=== PATIENT | female | born 1975 | race Caucasian/White ===

== ENCOUNTER 2016-12-24 18:19 | Inpatient (IN) | payer BC ==
--- NOTE | ~2016-12-24 | CR72 ---
[facility] A Service of [facility] RADIOLOGY TEXT RESULTS PATIENT: ASHA SANCHEZ LOCATION: [facility] 5610-09 : 73 UNIT #: [id number] AGE: [address]: Hugh Ernandez MD SEX: F ORDER DR: [id number] [place], [place] [address] [id number] I MR#: [id number] Acc #: [id number] NAME: ASHA SANCHEZ : 1975 SEX: F STUDY DATE/TIME: 12/24/2016 18:16 [facility] 00430 STUDY DESCRIPTION: CR Chest Single View Portable Attending Physician: Hugh Ernandez M.D. Ordering Physician: Allegra Can M.D. Primary Care Physician: Mae Colon M.D. MEDICAL IMAGING REPORT This report is preliminary unless electronic signature is present EXAM Frontal chest 12/24/2016 INDICATIONS 41-year-old female with chest pain, headache and weakness today. TECHNIQUE Frontal chest was performed. COMPARISON STUDIES We have no comparisons. FINDINGS Cardiac silhouette within normal limits. The vascularity is unremarkable. The lungs are clear. No pneumothorax. No effusion. IMPRESSION 1. Negative frontal chest for active disease. We have no comparisons. Dictated by... Nigel Solano M.D. THIS IS AN ELECTRONICALLY VERIFIED REPORT Nigel Solano M.D. at 12/25/2016 5:10 PM SNEHAL/spencer TD: 12/24/2016 22:55 JOB #: [id number] [facility] A Service of [facility] RADIOLOGY TEXT RESULTS PATIENT: ASHA SANCHEZ LOCATION: [facility] : 71 UNIT #: [id number] AGE: [address]: Hugh Ernanedz MD SEX: F ORDER DR: MEDICAL IMAGING REPORT Page 1 of 1 COPY
--- NOTE | ~2016-12-24 | HP ---
Unit #: [id number] #: [id number] Patient: ASHA SANCHEZ [id number] [address] [id number] I MR#: [id number] NAME: ASHA SANCHEZ ROOM: 562 Age: 41 Sex: F Admission Date: 12/24/2016 : 1975 Attending Physician: Hugh Ernandez M.D. Primary Care Physician: Mae Colon M.D. HISTORY AND PHYSICAL HISTORY OF PRESENT ILLNESS This is a 41-year-old white female who was admitted with upper anterior chest pain with radiation to the back, neck and jaw, associated with shortness of breath and weakness. 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 Her symptoms were intermittent, lasting for more than 36 hours before she went to her primary care physician. She was subsequently sent to the hospital for evaluation. In the emergency room electrocardiogram showed no acute ischemic changes. There was elevation of troponin at 15.60, which ruled her in for an acute non-ST elevation myocardial infarction. She was treated in the emergency room with aspirin and nitrates. She was started on anticoagulation with heparin drip. From a cardiac standpoint the patient has risk factors for ischemic heart disease that include diabetes mellitus type 1, nicotine abuse and family history of heart disease. She has had no prior cardiac history or workup. Until two days ago the patient was doing well without any symptoms of angina. She denies any exertional dyspnea, palpitations or dizziness. PAST MEDICAL HISTORY 1. Type 1 diabetes mellitus type 2 since age 3. 2. Nicotine abuse. PAST SURGICAL HISTORY 1. Appendectomy. 2. Arm plate insertion that was later removed. 3. Hysterectomy. SOCIAL HISTORY The patient is . 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 She states she is reasonably active, where she lifts boxes at work. She is very active with her children. She smokes a pack of cigarettes daily for at least 20 years. She denies illicit drug use. FAMILY HISTORY Father had myocardial infarction in his 70s. ALLERGIES No known drug allergies. HOME MEDICATIONS 1. Levemir 28 units subcutaneous at nighttime. 2. Wellbutrin 150 mg daily. REVIEW OF SYSTEMS Unit #: [id number] #: [id number] Patient: ASHA SANCHEZ CONSTITUTIONAL: Negative for fever or chills. Reports no weight gain or weight loss. HEENT: No headache. No visual changes, difficulty performing. Negative for dizziness. CARDIOVASCULAR: Has chest pain as described in history of present illness. Denies palpitations. No paroxysmal nocturnal dyspnea or orthopnea. No syncope or near syncope. RESPIRATORY: Positive for dyspnea that accompanies chest pain. No cough or hemoptysis. GASTROINTESTINAL: No abdominal pain, nausea or vomiting. EXTREMITIES: Negative for lower extremity edema. PHYSICAL EXAMINATION GENERAL: This is a very pleasant 41-year-old, middle-aged white female who appears younger than her stated age. VITALS: Blood pressure 110/60, heart rate 93, temperature 98.1, BMI 23. NECK: Trachea is midline. No thyromegaly. No lymphadenopathy. No jugular venous distension. CHEST: Clear to auscultation. No rales, rhonchi or wheezes. HEART: S1 and S2. Heart sounds are normal. No murmurs, rubs or clicks. Regular rate and rhythm. ABDOMEN: Soft and nontender with bowel sounds present. EXTREMITIES: Without leg edema. NEUROLOGIC: She is awake, alert and oriented. There is no focal weakness. 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 DIAGNOSTIC STUDIES IMAGING: Chest x-ray shows no active disease. LABORATORY: Glucose 253, BUN 9, creatinine 0.6, sodium 135, potassium 4.2. Cholesterol 195, triglycerides 218, LDL 99, HDL 52, D-dimer 392. Troponin 15.6 to 13.3 to 15.60. White blood cell count 8.7, hemoglobin 15.0, hematocrit 44.9, platelets 176. CARDIOVASCULAR: Electrocardiogram normal sinus rhythm with a rate of 88 beats per minute with short MT interval. Left anterior vesicular block and poor R wave progression. Questionable septal infarct. ASSESSMENT 1. Acute non-ST elevation myocardial infarction. 2. Insulin dependent diabetes mellitus type 1. 3. Nicotine abuse. PLAN 1. Because of acute myocardial infarction and multiple risk factors will recommend cardiac catheterization to evaluate coronary anatomy. This has been discussed with the patient, including the risks and benefits of bleeding, myocardial infarction, CVA, renovascular complications and . The patient is agreeable. 2. Will load with Brilinta and start on daily regimen. 3. Continue aspirin and heparin drip. 4. Will add MARBIN inhibitor and beta wander. 5. Lipid profile was obtained, which showed elevated triglycerides. Will place on high-intensity, high-dose statin for AMI. 6. Will ask HIPS to follow the patient for diabetes management. Unit #: [id number] #: [id number] Patient: ASHA SANCHEZ Dictated by Tej Oleary A.P.R.N. for Gianni Peña M.D. AERosi/gz TD: 12/25/2016 15:23 JOB #: [id number] CC: [facility] Mae Colon M.D. HISTORY AND PHYSICAL Page 1 of 1 X Tej Oleary APRN X HISTORY AND PHYSICAL
--- NOTE | ~2016-12-24 | EKG ---
PATIENT: ASHA SANCHEZ UNIT #: [id number] Ventricular Rate: 88 BPM Atrial Rate: 88 BPM P-R Interval: 104 ms QRS Duration: 80 ms Q-T Interval: 374 ms QTC Calculation(Bezet): 452 ms P Susan: -19 degrees Calculated R Susan: -46 degrees Calculated T Susan: 49 degrees Diagnosis Line: Sinus rhythm with short MT Diagnosis Line: Left anterior fascicular block Diagnosis Line: Abnormal ECG Diagnosis Line: No previous ECGs available Diagnosis Line: Confirmed by SORAIDA LINARES MD ([id number]) on 12/25/2016 Diagnosis Line: 7:16:34 PM INTERPRETING MD: VIJAY SPAIN
--- NOTE | ~2016-12-24 | EKG ---
PATIENT: ASHA SANCHEZ UNIT #: [id number] Ventricular Rate: 100 BPM Atrial Rate: 100 BPM P-R Interval: 112 ms QRS Duration: 80 ms Q-T Interval: 366 ms QTC Calculation(Bezet): 472 ms P [place]: 59 degrees Calculated R [place]: -37 degrees Calculated T [place]: 92 degrees Diagnosis Line: Normal sinus rhythm Diagnosis Line: Left axis deviation Diagnosis Line: Low voltage QRS Diagnosis Line: Nonspecific T wave abnormality Diagnosis Line: Prolonged QT Diagnosis Line: Abnormal ECG Diagnosis Line: When compared with ECG of 25-DEC-2016 11:33, Diagnosis Line: No significant change was found Diagnosis Line: Confirmed by ALEX MCCLOUD MD ([id number]) on Diagnosis Line: 12/26/2016 9:35:37 PM INTERPRETING MD: PAUL
--- NOTE | ~2016-12-24 | EKG ---
PATIENT: ASHA SANCHEZ UNIT #: [id number] Ventricular Rate: 94 BPM Atrial Rate: 94 BPM P-R Interval: 100 ms QRS Duration: 78 ms Q-T Interval: 380 ms QTC Calculation(Bezet): 475 ms P [place]: 24 degrees Calculated R [place]: -69 degrees Calculated T [place]: 71 degrees Diagnosis Line: Sinus rhythm with short MO Diagnosis Line: Left anterior fascicular block Diagnosis Line: Cannot rule out Inferior infarct , age Diagnosis Line: undetermined Diagnosis Line: Abnormal ECG Diagnosis Line: When compared with ECG of 24-DEC-2016 16:14, Diagnosis Line: (unconfirmed) Diagnosis Line: No significant change was found Diagnosis Line: Confirmed by SORAIDA LINARES MD ([id number]) on 12/25/2016 Diagnosis Line: 10:49:04 PM INTERPRETING MD: VIJAY SPAIN
--- NOTE | ~2016-12-24 | DS ---
Unit #: [id number] #: [id number] Patient: ASHA SANCHEZ [id number] [address] [place], [place] [address] [id number] I MR#: [id number] NAME: ASHA SANCHEZ ROOM: 562 Age: 41 Sex: F Admission Date: 12/24/2016 : 1975 Discharge Date: 12/27/2016 Attending Physician: Hugh Ernandez M.D. Primary Care Physician: Mea Colon M.D. DISCHARGE SUMMARY DISCHARGE DIAGNOSES 1. Acute anterolateral wall non-ST elevation myocardial infarction with peak troponin of 37.69. 2. Status post cardiac catheterization 12/25/2016 which revealed the following results: A. Left main normal. B. Left anterior descending artery with 80 to 90% stenosis distal to the first diagonal branch. Distal half of the left anterior descending is normal to small caliber and not an ideal target. First diagonal branch small caliber, diffuse disease. C. Circumflex artery normal with first marginal branch occluded immediately distal to its origin. BARRERA-0 flow. D. Right coronary artery: A large caliber, dominant vessel with a long segment of stenosis with 80% stenosis mid vessel. Posterior descending artery and posterior left ventricle branch is normal. E. Ejection fraction of 55%. Moderate posterior wall hypokinesis. 3. Status post angioplasty with drug-eluting stent to the first obtuse marginal branch and mid left anterior descending. Right coronary artery not dilated. 4. Hypotension, resolved. 5. Insulin-dependent diabetes mellitus type one. 6. Hypoglycemia, resolved. 7. Nicotine abuse. DISCHARGE MEDICATIONS 1. Wellbutrin 150 mg daily. 2. Lipitor 80 mg q.h.s. 3. Levemir 28 units subcu q.h.s. 4. Aspirin 81 mg p.o. daily. 5. Brilinta 90 mg daily. 6. Nitroglycerin 0.4 mg sublingual q.5 minutes x3 p.r.n. chest pain. 7. Carvedilol 3.125 mg b.i.d. HOSPITAL COURSE This is a 41-year-old, young, white female who was admitted with upper anterior chest pain that radiated to her back, neck and jaw. She had associated shortness of breath and weakness. On arrival to the emergency room, she ruled in for an acute myocardial infarction where her troponin was 15.60. It peaked at 37.69. She was treated initially with aspirin and placed on a heparin drip. She was given high intensity, high dose statin. Lipid profile was obtained which found her to have good control of her lipid levels with the exception of an elevated triglyceride level of 218. She was loaded with Brilinta and started on a daily regimen. The patient was started on an MARBIN inhibitor, lisinopril 5 mg daily. Later, Unit #: [id number] #: [id number] Patient: ASHA SANCHEZ she became hypotensive. Her blood pressure dropped to 85/44 mmHg. Lisinopril dose was decreased and eventually discontinued. Cardiac catheterization was recommended for which the patient was agreeable. Cath findings including 100% stenosis to the first obtuse marginal branch which was the infarct artery. The mid LAD had 80 to 90% stenosis. The right coronary artery had a long segment of 80% stenosis that was not dilated. After discussion with the patient and family, they agreed on staged angioplasty instead of coronary artery bypass surgery. There was successful deployment of a 2.5/16 mm Synergy drug-eluting stent into the 100% stenosis of the first obtuse marginal branch. The stenosis was reduced to zero percent after postdilation to 2.6 mm. Distal first obtuse marginal branch had 90% stenosis that used plain old balloon angioplasty. The mid LAD 90% stenosis was reduced to zero percent using a 2.5/16 Synergy drug-eluting stent. She was placed on Integrilin for 12 hours postprocedure. Her heart remained elevated. Lisinopril was discontinued and the patient was started on carvedilol for rate control. For diabetes management, [facility] saw the patient and adjusted her insulin because of hypoglycemia. Her hypoglycemia improved. Today, the patient is doing well. She has ambulated in the hallway without any symptoms of angina. Orthostatic blood pressures were obtained which were normal. MB index 10.7 with no acute ischemic changes on her EKG. She is stable for discharge today. ASSESSMENT VITAL SIGNS: Blood pressure 93/47. Heart rate 91. Temperature 98.7. CHEST: Clear to auscultation. HEART: S1, S2. Heart sounds are normal. No murmurs, rubs or clicks. Regular rate and rhythm. ABDOMEN: Soft, nontender but bowel sounds are present. EXTREMITIES: Without leg edema. Right radial without hematoma or bruising. DIAGNOSTIC STUDIES LABORATORY: Sodium 134, potassium 4.4, BUN 13, creatinine 0.5, glucose 215, magnesium 1.9. MB index 10.7. Cholesterol 195, triglycerides 218, LDL 99, HDL 52. CONSULTATION HIPS for diabetes management. DISCHARGE INSTRUCTIONS 1. The patient will be discharged home today. 2. Follow up with Dr. Peña on January at 2:45 p.m. 3. Follow up with primary care physician in two to three weeks. 4. The patient may return to work on January 13, 2017 with no restrictions. 5. MARBIN inhibitor has been discontinued because of hypotension. The patient was started on carvedilol. We will check blood pressure in the office and start MARBIN inhibitor if blood pressure allows. 6. Continue on dual antiplatelet therapy with aspirin and Brilinta for at least one year. She has zero copay for Brilinta. 7. The patient has been given information about cardiac rehab and is unsure whether it will fit into her work schedule. Cardiac Rehab is to follow up with the patient after discharge. Unit #: [id number] #: [id number] Patient: ASHA SANCHEZ Dictated by... Elaina PradoRPreston. for Jeff Cox/carol TD: 12/29/2016 14:26 JOB #: [id number] DISCHARGE SUMMARY Page 1 of 1 X Tej Oleary APRN X DISCHARGE SUMMARY
--- NOTE | ~2016-12-24 | CO ---
Unit #: [id number] #: [id number] Patient: ASHA SANCHEZ [id number] [address] [address] [id number] I MR#: [id number] NAME: ASHA SANCHEZ ROOM: 562 Age: 41 Sex: F Admission Date: 12/24/2016 : 1975 Attending Physician: Hugh Ernandez M.D. Primary Care Physician: Mae Colon M.D. CONSULTATION REPORT REASON FOR ADMISSION Non-ST elevation myocardial infarction. HISTORY OF PRESENT ILLNESS The patient is a very pleasant 41-year-old female with underlying history of insulin dependent diabetes since age 3 and tobacco abuse, who was admitted secondary to chest pain, discomfort, weakness, as well as difficulty with ambulation secondary to profound heaviness in the chest. She presented to the emergency room and it was noted that she did have elevated troponins. Troponin did peat at 15.60. This morning Dr. Peña saw and evaluated the patient. She has already undergone cardiac catheterization with percutaneous intervention and/or stent placement. She was noted to have 100% lesion left circumflex as well as 75% lesion in the RCA. She underwent staged PCI. We were asked to evaluate the patient secondary to her prior history of insulin dependent diabetes. PAST MEDICAL HISTORY 1. Nicotine abuse. 2. Insulin dependent diabetes since age 3. PAST SURGICAL HISTORY 1. Appendectomy. 2. Plate in arm, removed. 3. Hysterectomy. SOCIAL HISTORY Positive tobacco use. No illicit drug use. No alcohol use. 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 FAMILY HISTORY Reviewed. Mother had myocardial infarction. Diabetes does run in her family. ALLERGIES No known drug allergies. HOME MEDICATIONS 1. Levemir 28 units subcutaneous at nighttime. 2. Humalog sliding scale anywhere from 8-12 units throughout the day. 3. Wellbutrin 150 mg p.o. daily. REVIEW OF SYSTEMS Unit #: [id number] #: [id number] Patient: ASHA SANCHEZ Please see history of present illness. Twelve points otherwise negative except for those positive noted in history of present illness. PHYSICAL EXAMINATION GENERAL: The patient is a very pleasant 41-year-old female lying comfortably in no acute distress. VITALS: Temperature on admission 98.9, pulse 91, respiratory rate 16, blood pressure 124/62. HEENT: Head atraumatic, normocephalic. Ears, tympanic membranes no drainage or injection. NECK: Supple. LUNGS: Clear. HEART: S1 and S2 without murmur. GI/ABDOMEN: Nontender and nondistended. EXTREMITIES: No lower extremity edema or calf tenderness. NEUROLOGIC: The patient is alert and oriented times three. No evidence of any focal nerve deficits. EMERGENCY ROOM COURSE The patient received aspirin, normal saline bolus, sublingual nitroglycerin. DIAGNOSTIC STUDIES LABORATORY: Includes LDL 99, triglycerides 218, HDL 52, hemoglobin 15. Cardiac enzymes as mentioned above, positive yielding a peak troponin of 15.60. Influenza screen negative. INITIAL ADMISSION DIAGNOSIS 1. Non-ST elevation myocardial infarction status post cardiac catheterization with staged PCI times three. Please see catheterization report. 2. Insulin dependent diabetes, under excellent control. 3. Tobacco abuse. 4. Remote history of questionable TIA in the past. PLAN The patient will be reverted back to her home medications in regard to diabetes management, including Levemir 28 units subcutaneous at nighttime with low-dose NovoLog sliding scale insulin. Normally at home with breakfast she takes approximately 8 units of Humalog. 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 For dinner she takes anywhere from 8 to 12 units. Her last hemoglobin A1c performed at Dr. Joseph's office, her laboratory animal care veterinarian, was 5.8%, indicating excellent diabetic control. At the time of discharge the patient can be reverted back to her home dosage to which she was prior to being admitted here. For now I will resume her Levemir and continue her on low-dose NovoLog, with further hospital course to follow. Thank you, Dr. Peña, for this consultation. From our standpoint and from a diabetic management, the patient can be discharged home once she is clear and stable from a cardiac standpoint and from your point of view. Dictated by... Amos Beverly M.D. Unit #: [id number] #: [id number] Patient: ASHA SANCHEZ ISN/gz TD: 12/25/2016 11:52 JOB #: [id number] CONSULTATION REPORT Page 1 of 1 X Amos Beverly MD CONSULTATION REPORT
--- NOTE | ~2016-12-24 | EKG ---
PATIENT: ASHA SANCHEZ UNIT #: [id number] Ventricular Rate: 90 BPM Atrial Rate: 90 BPM P-R Interval: 120 ms QRS Duration: 80 ms Q-T Interval: 388 ms QTC Calculation(Bezet): 474 ms P [place]: 50 degrees Calculated R [place]: -94 degrees Calculated T [place]: 76 degrees Diagnosis Line: Normal sinus rhythm Diagnosis Line: Right superior axis deviation Diagnosis Line: Anterolateral infarct Diagnosis Line: Prolonged QT Diagnosis Line: Abnormal ECG Diagnosis Line: When compared with ECG of 25-DEC-2016 07:37, Diagnosis Line: (unconfirmed) Diagnosis Line: No significant change was found Diagnosis Line: Confirmed by SORAIDA LINARES MD ([id number]) on 12/26/2016 Diagnosis Line: 4:51:09 AM INTERPRETING MD: VIJAY SPAIN
[2016-12-24 17:07] LABS: BASOPHIL% 0.1 % (0-2.5); EOSINOPHIL% 0.2 % (0.0-7.0); HEMATOCRIT 46.6 % (35.0-45.0); HEMOGLOBIN 15.2 gm/dL (12.0-16.0); LYMPHOCYTE# 1.3 X10e3 (1.0-3.5); LYMPHOCYTE% 11.2 % (17.0-45.0); MEAN CELL VOLUME 91.5 FL (83-96); MEAN CORPUSCULAR HEMOGLOBIN 29.9 PG (28-34); MEAN CORPUSCULAR HGB CONC 32.7 g/dL (30-36); MEAN PLATELET VOLUME 8.5 FL (6.5-11.5); MONOCYTE# 0.6 X10e3 (0-1.0); MONOCYTE% 5.8 % (3.0-12.0); NEUTROPHIL# 9.3 X10e3 (1.5-7.1); NEUTROPHIL% 82.7 % (40-75); PLATELET COUNT 198 X10e3 (140-420); RED BLOOD COUNT 5.09 X10e (3.90-5.30); RED CELL DISTRIBUTION WIDTH 13.4 % (11.0-15.5); WHITE BLOOD COUNT 11.2 X10e3 (4.0-10.5)
[2016-12-24 17:13] LABS: DIFF IND NO
[2016-12-24 17:29] LABS: ALBUMIN SERUM 4.2 g/dL (3.5-5.0); BILIRUBIN, DIRECT 0.1 mg/dL (0.0-0.2); BILIRUBIN,INDIRECT 0.3 mg/dL (0.0-0.9); BILIRUBIN,TOTAL 0.4 mg/dL (0.2-2.0); BUN/CREATININE RATIO 12.5; CALCIUM SERUM 9.1 mg/dL (8.4-10.2); CREATININE SERUM 0.8 mg/dL (0.6-1.4); GLOM FILT RATE Estimated 90.4 mL/min (>60); POTASSIUM 4.2 mmol/L (3.5-5.1); PROTEIN TOTAL SERUM 8.1 g/dL (6.0-8.3)
[2016-12-24 18:34] LABS: POC - CKMB 64.2 ng/mL (0.0-7.9); POC - TROPONIN 15.6 ng/mL (<=0.05)
[2016-12-24 18:47] LABS: INFLUENZA A NEG (NEG); INFLUENZA B NEG (NEG)
[2016-12-24 19:40] LABS: POC - CKMB 64.9 ng/mL (0.0-7.9); POC - TROPONIN 13.3 ng/mL (<=0.05)
[2016-12-24 20:53] LABS: PARTIAL THROMBOPLASTIN TIME 25.2 SECONDS (23.5-31.3)
[2016-12-24] MEDS ORDERED: LEVEMIR100 UNITS/ SUBQ (22:52)
[2016-12-24] MEDS ORDERED: WELLBUTRIN XL150 M2 PO (22:53)
[2016-12-25] MEDS ORDERED: WELLBUTRIN100 MG (01:23)
[2016-12-25 03:08] LABS: BASOPHIL% 0.1 % (0-2.5); EOSINOPHIL% 0.4 % (0.0-7.0); HEMATOCRIT 42.5 % (35.0-45.0); HEMOGLOBIN 14.2 gm/dL (12.0-16.0); LYMPHOCYTE# 1.5 X10e3 (1.0-3.5); LYMPHOCYTE% 14.7 % (17.0-45.0); MEAN CORPUSCULAR HEMOGLOBIN 30.5 PG (28-34); MEAN CORPUSCULAR HGB CONC 33.5 g/dL (30-36); MEAN PLATELET VOLUME 8.3 FL (6.5-11.5); MONOCYTE# 0.8 X10e3 (0-1.0); MONOCYTE% 7.8 % (3.0-12.0); NEUTROPHIL# 7.9 X10e3 (1.5-7.1); PLATELET COUNT 150 X10e3 (140-420); RED BLOOD COUNT 4.67 X10e (3.90-5.30); RED CELL DISTRIBUTION WIDTH 13.2 % (11.0-15.5); WHITE BLOOD COUNT 10.3 X10e3 (4.0-10.5)
[2016-12-25 03:09] LABS: DIFF IND NO
[2016-12-25 03:42] LABS: BUN/CREATININE RATIO 13.33; CREATININE SERUM 0.6 mg/dL (0.6-1.4); GLOM FILT RATE Estimated 111.6 mL/min (>60); POTASSIUM 3.7 mmol/L (3.5-5.1)
[2016-12-25 04:13] LABS: %MB 12.9 % (0.0-4.0); MB 125.4 ng/ml
[2016-12-25 09:19] LABS: HEMATOCRIT 44.9 % (35.0-45.0); MEAN CELL VOLUME 90.2 FL (83-96); MEAN CORPUSCULAR HEMOGLOBIN 30.1 PG (28-34); MEAN CORPUSCULAR HGB CONC 33.4 g/dL (30-36); MEAN PLATELET VOLUME 8.7 FL (6.5-11.5); RED BLOOD COUNT 4.98 X10e (3.90-5.30); RED CELL DISTRIBUTION WIDTH 13.2 % (11.0-15.5); WHITE BLOOD COUNT 8.7 X10e3 (4.0-10.5)
[2016-12-25 09:28] LABS: PARTIAL THROMBOPLASTIN TIME 39.2 SECONDS (23.5-31.3)
[2016-12-25 09:45] LABS: CHOLESTEROL 195 mg/dL (0-200); HDL CHOLESTEROL 52 mg/dL (35-95); LDL CHOLESTEROL 99 mg/dL (-130); LDL/HDL RATIO 2 RATIO (0-4); TRIGLYCERIDES 218 mg/dL (10-160)
[2016-12-25 09:56] LABS: CALCIUM SERUM 8.4 mg/dL (8.4-10.2); CREATININE SERUM 0.6 mg/dL (0.6-1.4); GLOM FILT RATE Estimated 111.6 mL/min (>60); POTASSIUM 4.2 mmol/L (3.5-5.1)
[2016-12-25 15:43] LABS: PROTHROMBIN TIME (PATIENT) 10.2 SECONDS (9.6-11.5)
[2016-12-25 16:09] LABS: AMPHETAMINE NEG (NEG); BARBITURATES NEG (NEG); BENZODIAZEPINES POS (NEG); COCAINE NEG (NEG); MARIJUANA NEG (NEG); OPIATES NEG (NEG); TRICYCLIC ANTIDEPRESSANTS NEG (NEG); U METHADONE NEG (NEG)
[2016-12-25 16:18] LABS: %MB 14.2 % (0.0-4.0); MB 133.2 ng/ml
[2016-12-25 19:44] LABS: ANGIO %MB 13.2 % (0.0-4.0); ANGIO MB 90.4 ng/ml
[2016-12-26 03:17] LABS: HEMATOCRIT 35.6 % (35.0-45.0); MEAN CORPUSCULAR HEMOGLOBIN 30.2 PG (28-34); MEAN CORPUSCULAR HGB CONC 32.9 g/dL (30-36); MEAN PLATELET VOLUME 8.5 FL (6.5-11.5); RED BLOOD COUNT 3.87 X10e (3.90-5.30); RED CELL DISTRIBUTION WIDTH 13.1 % (11.0-15.5); WHITE BLOOD COUNT 7.6 X10e3 (4.0-10.5)
[2016-12-26 03:18] LABS: HEMOGLOBIN 11.7 gm/dL (12.0-16.0)
[2016-12-26 04:07] LABS: ANGIO %MB 10.7 % (0.0-4.0); ANGIO MB 44.4 ng/ml
[2016-12-26 04:11] LABS: CALCIUM SERUM 8.1 mg/dL (8.4-10.2); CREATININE SERUM 0.5 mg/dL (0.6-1.4); GLOM FILT RATE Estimated 118.6 mL/min (>60); POTASSIUM 4.2 mmol/L (3.5-5.1)
[2016-12-27 09:46] LABS: CALCIUM SERUM 8.6 mg/dL (8.4-10.2); CREATININE SERUM 0.5 mg/dL (0.6-1.4); GLOM FILT RATE Estimated 118.6 mL/min (>60); MAGNESIUM 1.9 mg/dL (1.6-3.0); POTASSIUM 4.4 mmol/L (3.5-5.1)
[2016-12-27] MEDS ORDERED: ASPIRIN EC81 M1 PO (14:19)
[2016-12-27] MEDS ORDERED: COREG PO (14:20)
[2016-12-27] MEDS ORDERED: NITROGLYGERIN0.4 MG SL (14:20)
[2016-12-27] MEDS ORDERED: BRILINTA90 MG PO (14:21)
== END 2016-12-27 16:41 | disposition home or self-care (01) | DRG 247 ==
LOC: CED 18:19 → CEDOF 19:00 → C5B 23:34
PROVIDERS: Emergency Medicine; Family Medicine; Internal Medicine Advanced Heart Failure and Transplant Cardiology; Internal Medicine Cardiovascular Disease; Nurse Practitioner
PROC: 027135Z Dilation of Coronary Artery, Two Arteries with Two Drug-eluting Intraluminal Devices, Percutaneous Approach (ICD-10-PCS; principal; 2016-12-25)
PROC: 02703ZZ Dilation of Coronary Artery, One Artery, Percutaneous Approach (ICD-10-PCS; 2016-12-25)
PROC: B2151ZZ Fluoroscopy of Left Heart using Low Osmolar Contrast (ICD-10-PCS; 2016-12-25)
PROC: B2111ZZ Fluoroscopy of Multiple Coronary Arteries using Low Osmolar Contrast (ICD-10-PCS; 2016-12-25)
DX: I21.4 Non-ST elevation (NSTEMI) myocardial infarction (principal); E10.649 Type 1 diabetes mellitus with hypoglycemia without coma; I95.9 Hypotension, unspecified; I25.10 Atherosclerotic heart disease of native coronary artery without angina pectoris; F17.210 Nicotine dependence, cigarettes, uncomplicated; Z79.4 Long term (current) use of insulin; Z79.82 Long term (current) use of aspirin; Z79.899 Other long term (current) drug therapy; Z82.49 Family history of ischemic heart disease and other diseases of the circulatory system
CPT/HCPCS: 36415; 71010; 80048; 80061; 80076; 80307; 82550; 82553; 82947; 83735; 84484; 85025; 85027; 85049; 85347; 85379; 85610; 85730; 87804; 93005; 96361; 96374; 99285; C1769; C1874; C1887; C1894; J1327; J1644; J1815; J2250; J2370; J3010

== ENCOUNTER 2017-03-09 04:27 | Emergency (ER) | payer BC ==
--- NOTE | ~2017-03-09 | CR72 ---
[facility] A Service of [facility] RADIOLOGY TEXT RESULTS PATIENT: ASHA SANCHEZ LOCATION: [facility] : [birth year] UNIT #: [id number] AGE: [address]: Jae Sandy MD SEX: F ORDER DR: [id number] [facility] [address] [place], [place] [address] [id number] E MR#: [id number] Acc #: [id number] NAME: ASHA SANCHEZ : 1975 SEX: F STUDY DATE/TIME: 03/09/2017 5:01 UNIT: [facility] ROOM: STUDY DESCRIPTION: CR Chest Single View Portable Attending Physician: Jae Sandy M.D. Ordering Physician: Ganesh Beal M.D. Primary Care Physician: Mae Colon M.D. MEDICAL IMAGING REPORT This report is preliminary unless electronic signature is present EXAM Single view chest INDICATIONS Altered mental status. Hypoglycemia. COMPARISON Single portable AP view of the chest compared to 12/24/2016. FINDINGS Heart and mediastinal contours are normal. There is a patchy airspace opacity in the right midlung. Correlate for any evidence of pneumonia. IMPRESSION Development of a small patchy area of opacity in the right midlung. Correlate for any evidence of pneumonia. Dictated by... García Lynch M.D. THIS IS AN ELECTRONICALLY VERIFIED REPORT García Lynch M.D. at 03/09/2017 10:29 PM NELA/haresh TD: 03/09/2017 13:07 JOB #: [id number] MEDICAL IMAGING REPORT Page 1 of 1 COPY
[~2017-03-09 04:27] MED LIST: ASPIRIN EC81 M1 PO; BRILINTA90 MG PO; COREG PO; LEVEMIR100 UNITS/ SUBQ; NITROGLYGERIN0.4 MG SL; WELLBUTRIN XL150 M2 PO; WELLBUTRIN100 MG
[2017-03-09 06:20] LABS: URINE SOURCE CLEAN CATCH
[2017-03-09 06:39] LABS: URINE BACTERIA AUWI 1+ (NEGATIVE)
[2017-03-09 06:48] LABS: BASOPHIL% 0.3 % (0-2.5); EOSINOPHIL# 0.1 X10e3 (0-0.7); EOSINOPHIL% 1.2 % (0.0-7.0); HEMATOCRIT 39.1 % (35.0-45.0); HEMOGLOBIN 12.9 gm/dL (12.0-16.0); LYMPHOCYTE# 1.7 X10e3 (1.0-3.5); LYMPHOCYTE% 24.9 % (17.0-45.0); MEAN CELL VOLUME 91.6 FL (83-96); MEAN CORPUSCULAR HEMOGLOBIN 30.3 PG (28-34); MEAN CORPUSCULAR HGB CONC 33.1 g/dL (30-36); MEAN PLATELET VOLUME 8.9 FL (6.5-11.5); MONOCYTE# 0.5 X10e3 (0-1.0); MONOCYTE% 7.3 % (3.0-12.0); NEUTROPHIL# 4.5 X10e3 (1.5-7.1); NEUTROPHIL% 66.3 % (40-75); RED BLOOD COUNT 4.27 X10e (3.90-5.30); RED CELL DISTRIBUTION WIDTH 12.5 % (11.0-15.5); WHITE BLOOD COUNT 6.7 X10e3 (4.0-10.5)
[2017-03-09 06:51] LABS: URINE APPEARANCE HAZY; URINE BILIRUBIN NEG (NEG); URINE BLOOD NEG (NEG); URINE COLOR YELLOW; URINE GLUCOSE 300 MG/DL (NORM); URINE KETONE NEG (NEG); URINE LEUKOCYTE ESTERASE NEG (NEG); URINE NITRATE NEG (NEG); URINE PH 6.5 (5-8); URINE PROTEIN 1+ (NEG); URINE SPECIFIC GRAVITY 1.015 (1.003-1.035); URINE UROBILINOGEN NORM (NORM)
[2017-03-09 06:53] LABS: ALBUMIN SERUM 3.8 g/dL (3.5-5.0); BILIRUBIN, DIRECT 0.1 mg/dL (0.0-0.2); BILIRUBIN,INDIRECT 0.6 mg/dL (0.0-0.9); BILIRUBIN,TOTAL 0.7 mg/dL (0.2-2.0); CALCIUM SERUM 10.1 mg/dL (8.4-10.2); CREATININE SERUM 0.8 mg/dL (0.6-1.4); GLOM FILT RATE Estimated 90.4 mL/min (>60); POTASSIUM 3.4 mmol/L (3.5-5.1); PROTEIN TOTAL SERUM 6.8 g/dL (6.0-8.3)
[2017-03-09 07:00] LABS: URBCS1 AUWI 0-2 /[HPF] (0-2); URINE SQUAMOUS EPITHELIAL CELL OCCAS /[HPF]; UWBCS1 AUWI 0-2 (0-5)
[2017-03-09 07:01] LABS: CULTURE INDICATED? NO; U HYALINE CASTS AUWI 0-2 /[LPF]; URINE AMORPHOUS SEDIMENT AMORP URATES
[2017-03-09 07:29] LABS: DIFF IND NO; PLATELET COUNT 122 X10e3 (140-420)
== END 2017-03-09 10:46 | disposition home or self-care (01) ==
LOC: CED 04:27
PROVIDERS: Emergency Medicine
DX: E11.649 Type 2 diabetes mellitus with hypoglycemia without coma (principal); R56.9 Unspecified convulsions; T68.XXXA Hypothermia, initial encounter; J18.9 Pneumonia, unspecified organism; Z90.710 Acquired absence of both cervix and uterus; Z90.49 Acquired absence of other specified parts of digestive tract
CPT/HCPCS: 36415; 71010; 80048; 80076; 81003; 82947; 85025; 96365; 96375; 99291; J0456; J0696; J2405

== ENCOUNTER → 2017-05-14 | Outpatient (CLI) | payer BC ==
--- NOTE | ~2017-05-14 | ST ---
Unit #: [id number] #: [id number] Patient: ASHA SANCHEZ [id number] [facility]. [address] [address] [id number] MR#: [id number] NAME: ASHA SANCHEZ : 1975 SEX: F STUDY DATE/TIME: 05/14/2017 UNIT: [facility] ROOM: STUDY DESCRIPTION: Stress Test Attending Physician: Gianni Peña M.D. Referring Physician: Gianni Peña M.D. Primary Care Physician: Mae Colon M.D. CARDIOLOGY REPORT EXAM Walking Lexiscan Cardiolite REASON FOR EXAM Known coronary artery disease with stent placement. DESCRIPTION Baseline EKG shows normal sinus rhythm, rate of 67 beats per minute. 0.4 mg of Lexiscan was injected per protocol followed by Cardiolite. During the infusion, patient complained of mild shortness of air but otherwise no other symptoms. Denied any complaints of chest pain. There were no ST-T wave changed suggestive of ischemia. There was no ectopy. The test was stopped secondary to protocol completion. IMPRESSION 1. Negative EKG portion of walking Lexiscan Cardiolite. 2. No ST-T wave changes suggestive of ischemia. 3. Mild shortness of breath during the infusion which resolved in the recovery period. Denied any other complaints of chest pain, dizziness or headache. 4. No arrhythmias were noted. 5. Please correlate with nuclear imaging. Dictated by... Kristen Goyal A.P.R.N. for Cheryl Bain M.D. LMW/df TD: 05/14/2017 12:03 JOB #: [id number] Unit #: [id number] #: [id number] Patient: ASHA SANCHEZ CARDIOLOGY REPORT Page 1 of 1 X Kristen Goyal APRN CARDIOLOGY REPORT
--- NOTE | ~2017-05-14 | TH ---
Unit #: [id number] #: [id number] Patient: ASHA SANCHEZ [id number] [address] [id number] O MR#: [id number] NAME: ASHA SANCHEZ : 1975 SEX: F STUDY DATE/TIME: 05/14/2017 UNIT: LOCATED WITHIN [facility] ROOM: STUDY DESCRIPTION: Attending Physician: Gianni Peña M.D. Referring Physician: Gianni Peña M.D. Primary Care Physician: Mae Colon M.D. CARDIOLOGY REPORT EXAM Lexiscan Cardiolite stress test, nuclear portion. PROCEDURE Using technetium 99m labeled Cardiolite, rest and stress SPECT images were obtained. Multiple SPECT images were obtained in various views including horizontal and vertical long axis and short axis views of the left ventricle. Images were obtained by gated SPECT method. Patient was administered 10.2 mCi of Cardiolite at rest. Patient was administered 33.8 mCi of Cardiolite after Lexiscan infusion was completed. On the stress images, there is a medium-sized area of moderate to severe decreased isotope activity involving the lateral wall. The rest images also show a small to medium-sized area of moderate decreased isotope activity involving the lateral wall. Comparing rest and stress images, there is suspicion for lateral wall myocardial infarction with some lizeth-infarct ischemia. The left ventricular ejection fraction is calculated to be 64%. There is lateral wall hypokinesis seen. CONCLUSION 1. Suspicion for medium-sized area of lateral wall myocardial infarction with lizeth-infarct ischemia. 2. The left ventricular ejection fraction is calculated to be 64%. 3. There is lateral wall hypokinesis seen. 4. Abnormal Lexiscan Cardiolite stress test suspicious for coronary artery disease. Suspicious for disease involving the circumflex territory. Clinical correlation is requested. Dictated by... Jeff Garcia TD: 05/14/2017 14:37 JOB #: [id number] Unit #: [id number] #: [id number] Patient: ASHA SANCHEZ CARDIOLOGY REPORT Page 1 of 1 X Cheryl Bain MD <ELECTRONICALLY SIGNED> 05/29/17 1524 CARDIOLOGY REPORT
== END | disposition home or self-care (01) ==
LOC: CNUC 08:36
DX: I25.10 Atherosclerotic heart disease of native coronary artery without angina pectoris (principal); R07.89 Other chest pain; R94.30 Abnormal result of cardiovascular function study, unspecified
CPT/HCPCS: 78452; 93017; A9500; J2785